=== PATIENT | male | born 1995 | race African-American/Black ===

== ENCOUNTER 2021-12-08 10:06 | Emergency (ER) | payer OTHER ==
[~2021-12-08] VITALS: Ht 177.8 cm; Wt 97.7 kg
[2021-12-08 10:07] VITALS: BP 138/88
[2021-12-08] MEDS ORDERED: IBUP-1114 PO (10:14)
[2021-12-08] MEDS ORDERED: LIDOCAINE 5% (LIDODERM) PATCH TD ONE (10:40)
[2021-12-08] MEDS ORDERED: KETOROLAC 30 MG/ML 1ML VIAL IM ONE (10:40)
[2021-12-08] MEDS ORDERED: LIDO5DIS41 TOP (11:23)
[2021-12-08] MEDS ORDERED: METH-1164 PO (11:23)
[2021-12-08] MEDS ORDERED: MEDR4PAK PO (11:33)
[2021-12-08] MEDS ORDERED: **NOTE PATIENT COMMENT** MISC XX ONE (23:00)
== END 2021-12-08 11:35 | disposition home or self-care (01) ==
LOC: M ED 10:06
DX: M51.26 Other intervertebral disc displacement, lumbar region (principal); X50.0XXA Overexertion from strenuous movement or load, initial encounter; Y93.B3 Activity, free weights; Y99.1 Military activity; G89.29 Other chronic pain; Z79.899 Other long term (current) drug therapy
CPT/HCPCS: 72131; 96372; 99282; J1885